=== PATIENT | female | born 1950 | race Asian ===

== ENCOUNTER 2019-01-27 07:24 | Emergency (ER) | payer OTHER | END 2019-01-27 09:43 | disposition home or self-care (01) | LOC: FTE 07:24 | DX: S90.31XA Contusion of right foot, initial encounter (principal); I10 Essential (primary) hypertension; W01.0XXA Fall on same level from slipping, tripping and stumbling without subsequent striking against object, initial encounter; Y92.89 Other specified places as the place of occurrence of the external cause | CPT/HCPCS: 73630; 99283-25 ==

== ENCOUNTER 2019-03-21 05:08 | Inpatient (IN) | payer BC, OTHER ==
[2019-03-21] MEDS: ONDANSETRON 4 MG INJ IV ×3 (05:37→18:54)
[2019-03-21] MEDS: morphine 4 MG/ML VIAL IV (05:38)
[2019-03-21] MEDS: SOD CHLORIDE 0.9% 1,000 ML IV (05:38)
[2019-03-21 05:59] LABS: ADD MAN DIFF? NO
[2019-03-21 06:10] LABS: BASOPHILS % 0.3 % (0.0-2.0); EOSINOPHILS % 0.1 % (0.0-7.0); HEMOGLOBIN 12.6 g/dl (12.0-16.0); LYMPHOCYTES # 0.9 10^3/ul (0.8-2.9); LYMPHOCYTES % 7.5 % (15.0-51.0); MEAN CORPUSCULAR HEMOGLOBIN 22.5 pg (29.0-33.0); MEAN CORPUSCULAR VOLUME 74.9 fl (82.0-101.0); MEAN PLATELET VOLUME 11.7 fl (7.4-10.4); MONOCYTE # 0.6 10^3/ul (0.3-0.9); NEUTROPHIL # 10.3 10^3/ul (1.6-7.5); NEUTROPHILS % 86.5 % (39.0-77.0); PLATELET COUNT 233 10^3/UL (140-415); RED BLOOD COUNT 5.61 10^6/ul (4.20-5.40); RED CELL DISTRIBUTION WIDTH 13.7 % (11.5-14.5)
[2019-03-21 06:10] LABS: WHITE BLOOD COUNT 11.9 10^3/ul (4.8-10.8)
[2019-03-21 06:25] LABS: ALANINE AMINOTRANSFERASE 15 IU/L (13-69); ALBUMIN 4.1 g/dl (3.3-4.9); ALBUMIN/GLOBULIN RATIO 1.17; ALKALINE PHOSPHATASE 65 IU/L (42-121); ANION GAP 13 (5-13); ASPARTATE AMINO TRANSFERASE 29 IU/L (15-46); BILIRUBIN,INDIRECT 0.7 mg/dl (0-1.1); BILIRUBIN,TOTAL 0.7 mg/dl (0.2-1.3); BLOOD UREA NITROGEN 13 mg/dl (7-20); CARBON DIOXIDE 24 mmol/L (21-31); CHLORIDE 109 mmol/L (97-110); Estimated GFR > 60 mL/min (>60); GLUCOSE 144 mg/dl (70-220); LIPASE 43 U/L (23-300); POTASSIUM 4.2 mmol/L (3.5-5.1); SODIUM 146 mmol/L (135-144); TOTAL PROTEIN 7.6 g/dl (6.1-8.1)
[2019-03-21] MEDS ORDERED: ONDANSETRON 4 MG INJ IV (08:30)
[2019-03-21] MEDS ORDERED: ACETAMINOPHEN 325 MG TAB PO ×2 (08:30→12:00)
[2019-03-21] MEDS ORDERED: CARvedilol (CR) 20 MG CAP PO (12:00)
[2019-03-21] MEDS ORDERED: NACL 0.9% 3 ML SYG IV (12:00)
[2019-03-21] MEDS: SOD CHLORIDE 0.45% 1,000 ML IV ×2 (12:17→22:26)
[2019-03-21] MEDS: LOSARTAN 50 MG TAB PO (12:18)
[2019-03-21] MEDS: ATORVASTATIN 20 MG TAB PO (21:00)
[2019-03-22] MEDS: ONDANSETRON 4 MG INJ IV (04:05)
[2019-03-22 05:43] LABS: WHITE BLOOD COUNT 8.2 10^3/ul (4.8-10.8)
[2019-03-22 05:43] LABS: ADD MAN DIFF? NO; BASOPHILS % 0.2 % (0.0-2.0); HEMOGLOBIN 10.8 g/dl (12.0-16.0); LYMPHOCYTES # 1.2 10^3/ul (0.8-2.9); LYMPHOCYTES % 14.1 % (15.0-51.0); MEAN CORPUSCULAR HEMOGLOBIN 22.6 pg (29.0-33.0); MEAN CORPUSCULAR HGB CONC 30.9 g/dl (32.0-37.0); MEAN CORPUSCULAR VOLUME 73.4 fl (82.0-101.0); MEAN PLATELET VOLUME 12.5 fl (7.4-10.4); MONOCYTE # 0.7 10^3/ul (0.3-0.9); MONOCYTES % 8.3 % (0.0-11.0); NEUTROPHIL # 6.3 10^3/ul (1.6-7.5); PLATELET COUNT 234 10^3/UL (140-415); RED BLOOD COUNT 4.77 10^6/ul (4.20-5.40); RED CELL DISTRIBUTION WIDTH 13.3 % (11.5-14.5)
[2019-03-22 05:57] LABS: HEMOGLOBIN A1C 5.3 % (0-5.9)
[2019-03-22 06:27] LABS: ALANINE AMINOTRANSFERASE 21 IU/L (13-69); ALBUMIN 3.3 g/dl (3.3-4.9); ALBUMIN/GLOBULIN RATIO 1.06; ALKALINE PHOSPHATASE 49 IU/L (42-121); ANION GAP 11 (5-13); ASPARTATE AMINO TRANSFERASE 22 IU/L (15-46); BLOOD UREA NITROGEN 12 mg/dl (7-20); CALCIUM 8.8 mg/dl (8.4-10.2); CARBON DIOXIDE 29 mmol/L (21-31); CHLORIDE 102 mmol/L (97-110); CREATININE 0.84 mg/dl (0.44-1.00); Estimated GFR > 60 mL/min (>60); GLUCOSE 106 mg/dl (70-220); MAGNESIUM 1.9 mg/dl (1.7-2.5); PHOSPHORUS 3.7 mg/dl (2.5-4.9); POTASSIUM 3.4 mmol/L (3.5-5.1); SODIUM 142 mmol/L (135-144); TOTAL PROTEIN 6.4 g/dl (6.1-8.1)
[2019-03-22] MEDS: SOD CHLORIDE 0.45% 1,000 ML IV ×2 (07:55→16:08)
[2019-03-22] MEDS: CARvedilol (CR) 10 MG CAP PO (09:00)
[2019-03-22] MEDS: ASPIRIN 81 MG TAB PO (09:06)
[2019-03-22] MEDS: LOSARTAN 50 MG TAB PO (09:06)
[2019-03-22] MEDS ORDERED: DOCUSATE SODIUM 100 MG CAP PO (19:30)
[2019-03-22] MEDS: ATORVASTATIN 20 MG TAB PO (20:39)
[2019-03-23 04:58] LABS: ADD MAN DIFF? NO
[2019-03-23 04:59] LABS: WHITE BLOOD COUNT 6.3 10^3/ul (4.8-10.8)
[2019-03-23 04:59] LABS: BASOPHILS % 0.3 % (0.0-2.0); EOSINOPHILS # 0.1 10^3/ul (0.0-0.5); EOSINOPHILS % 0.8 % (0.0-7.0); HEMATOCRIT 33.6 % (37.0-47.0); HEMOGLOBIN 10.1 g/dl (12.0-16.0); LYMPHOCYTES # 1.2 10^3/ul (0.8-2.9); LYMPHOCYTES % 19.3 % (15.0-51.0); MEAN CORPUSCULAR HEMOGLOBIN 22.5 pg (29.0-33.0); MEAN CORPUSCULAR HGB CONC 30.1 g/dl (32.0-37.0); MEAN CORPUSCULAR VOLUME 74.8 fl (82.0-101.0); MEAN PLATELET VOLUME 10.3 fl (7.4-10.4); MONOCYTE # 0.6 10^3/ul (0.3-0.9); MONOCYTES % 9.3 % (0.0-11.0); NEUTROPHIL # 4.4 10^3/ul (1.6-7.5); PLATELET COUNT 210 10^3/UL (140-415); RED BLOOD COUNT 4.49 10^6/ul (4.20-5.40); RED CELL DISTRIBUTION WIDTH 13.6 % (11.5-14.5)
[2019-03-23 05:18] LABS: ALANINE AMINOTRANSFERASE 15 IU/L (13-69); ALBUMIN/GLOBULIN RATIO 0.96; ALKALINE PHOSPHATASE 42 IU/L (42-121); ANION GAP 10 (5-13); ASPARTATE AMINO TRANSFERASE 20 IU/L (15-46); BILIRUBIN,INDIRECT 0.8 mg/dl (0-1.1); BILIRUBIN,TOTAL 0.8 mg/dl (0.2-1.3); BLOOD UREA NITROGEN 11 mg/dl (7-20); CALCIUM 8.6 mg/dl (8.4-10.2); CARBON DIOXIDE 26 mmol/L (21-31); CHLORIDE 106 mmol/L (97-110); CREATININE 0.78 mg/dl (0.44-1.00); Estimated GFR > 60 mL/min (>60); GLUCOSE 86 mg/dl (70-220); POTASSIUM 3.5 mmol/L (3.5-5.1); SODIUM 142 mmol/L (135-144); TOTAL PROTEIN 6.1 g/dl (6.1-8.1)
[2019-03-23 05:20] LABS: LACTIC ACID 0.7 mmol/L (0.5-2.0)
[2019-03-23 05:20] LABS: INR 0.92; PROTIME 12.5 Sec (11.9-14.9)
[2019-03-23 05:24] LABS: PHOSPHORUS 3.4 mg/dl (2.5-4.9)
[2019-03-23 05:24] LABS: LIPASE 61 U/L (23-300); MAGNESIUM 2.2 mg/dl (1.7-2.5)
[2019-03-23] MEDS: FAMOTIDINE 20 MG TAB PO (08:52)
[2019-03-23] MEDS: ASPIRIN 81 MG TAB PO (08:53)
[2019-03-23] MEDS: LOSARTAN 50 MG TAB PO (08:54)
== END 2019-03-23 16:15 | disposition home or self-care (01) | DRG 390 ==
LOC: E/R 05:08 → PP2 08:14
DX: K56.600 Partial intestinal obstruction, unspecified as to cause (principal); E86.0 Dehydration; I10 Essential (primary) hypertension; Z79.82 Long term (current) use of aspirin; Z95.4 Presence of other heart-valve replacement; E78.5 Hyperlipidemia, unspecified; K66.0 Peritoneal adhesions (postprocedural) (postinfection); Z85.3 Personal history of malignant neoplasm of breast; K57.90 Diverticulosis of intestine, part unspecified, without perforation or abscess without bleeding
CPT/HCPCS: 36415; 74176; 80053; 83036; 83605; 83690; 83735; 84100; 85025; 85610; 96374; 99285-25